=== PATIENT | female | born 1940 | race Caucasian/White ===

== ENCOUNTER 2020-03-08 09:43 | Outpatient (CLI) | payer MEDICARE, OTHER, SELFPAY ==
--- NOTE | ~2020-03-08 | CT_ITS ---
EXAMINATION: CT chest wo con EXAM DATE: 03/08/2020 10:29 INDICATION: Pulmonary nodules. TECHNIQUE: Spiral CT of the chest without contrast. Axial, coronal and sagittal images were reviewe d. Coronal maximum intensity pixel images of chest reviewed. The dose-length product (DLP) for this examination was 119.62 mGy-cm. The exposure was tailored according to patient size (auto mA exposur e control), and iterative reconstruction (ASIR) was used as additional dose reduction technique. Comp arison is made to prior examination from 01/03/2019, 12/21/2018, 01/14/2018. FINDINGS: In the anterior segment of the left upper lobe there is spiculated nodule measuring 1.3 x 1.8 cm (was 0.8 x 1.3 in 2018). This is connected by a bandlike opacity to another nodule in the same segment measuring measuring 1.3 x 1.6 cm (was 1.0 x 1.5 in 2018). Increase in size of other left magda g opacities which are less suspicious. There are no pleural or pericardial effusions. There is mild to moderate emphysema. Tracheobronchial tree is patent. There is no mediastinal, hilar or axillary lymphadenopathy. There is no pneumotho rax. Some hyperinflation with narrow cardiac silhouette. There is moderate to severe coronary carmelo rial calcification, arterial sclerosis. Bilateral adrenal gland low-density lesions unchanged likely benign. There is thoracic spondylosis without osteoblastic or osteolytic lesions identified. IMPRESSION: 1. Slow interval increase in size of scattered left lung nodular and reticular nodular opacities. Th zara could be postinfectious given slow interval growth and multiplicity. Consider ordering CT-guided percutaneous lung biopsy of largest left upper lobe nodule. 2. Mild to moderate emphysema and hyperinflation. 3. Extensive coronary artery calcifications. Consider follow-up nonemergent cardiology evaluation if not recently evaluated. 4. Benign adrenal lesions. Reviewed, dictated and finalized at location A. IMPRESSION: 1. Slow interval increase in size of scattered left lung nodular and reticular nodular opacities. These could be postinfectious given slow interval growth an d multiplicity. Consider ordering CT-guided percutaneous lung biopsy of largest left upper lobe nodule. 2. Mild to moderate emphysema and hyperinflation. 3. Extensive coronary artery calcifications. Consider follow-up nonemergent ca rdiology evaluation if not recently evaluated. 4. Benign adrenal lesions.
== END 2020-03-08 09:44 | disposition home or self-care (01) ==
LOC: ANHIMG 09:45
PROVIDERS: PCP Family Medicine; Visit Provider Family Medicine
DX: R91.1 Solitary pulmonary nodule (principal); J43.9 Emphysema, unspecified
CPT/HCPCS: 71250

== ENCOUNTER 2020-12-28 14:31 | Emergency (ER) | payer MEDICARE, OTHER, SELFPAY ==
--- NOTE | ~2020-12-28 | CT_ITS ---
EXAMINATION: CT chest abdomen pelvis w con EXAM DATE: 12/28/2020 15:50 INDICATION: Gastric, epigastric mass. Wound near center of chest, redness and swelling, marked. Epiga stric chest pain. TECHNIQUE: Spiral CT of the chest, abdomen and pelvis was performed following intravenous injection o f 100 mL Omnipaque 350. Axial, coronal and sagittal images were reviewed. Coronal maximum intensity pixel images of chest reviewed. The dose-length product (DLP) for this examination was 1092.63 mGy- cm. The exposure was tailored according to patient size (auto mA exposure control), and iterative re construction (ASIR) was used as additional dose reduction technique. Comparison is made to prior exam ination from 03/08/2020. FINDINGS: In the anterior subcutaneous tissues from the mid chest to the lower chest there is large a mount of subcutaneous gas within the fat. Appearance is suspicious for gas-forming bacteria, necrotiz ing fasciitis. No drainable fluid collection. Recommend clinical correlation, surgical consult. CHEST: Interval development of a left epicardial heterogeneously enhancing malignancy measuring 3.7 x 2.5 cm. Interval development of left internal mammary chain lymph node measuring about 1.2 cm in siz e. Previously seen 2 left upper lobe pulmonary nodules are reidentified, they appear closer to each o ther than on previous examination, but overall volume either stable or with continued minimal interva l growth. Left lower lobe nodule has increased, difficult to measure given shape but today measuring about 2.4 x 1.8 cm versus 1.7 x 1.1 cm. There is left periaortic soft tissue measuring about 6 mm in thickness extending along the mid abdominal aorta, probably malignancy. There is mild emphysema. The re is small left-sided pleural effusion. Scattered small regions of endobronchial debris. There is no mediastinal, hilar or axillary lymphadenopathy. There is no pneumothorax. Heart normal in size . There is moderate coronary arterial calcification, arterial sclerosis. No central pulmonary embol i. ABDOMEN PELVIS: There is a right adrenal gland lesion was low density on noncontrast study consiste nt with adenoma measuring 2.4 cm. There is moderate left renal atrophy, with regions of scarring. Ga llbladder not identified, patient likely has had cholecystectomy. Portal and splenic veins are paten t. Kidneys enhance symmetrically. There is no hydronephrosis. The uterus is unremarkable. The b ladder is unremarkable. There is no retroperitoneal or pelvic lymphadenopathy. There is aortoiliac ectasia with scattered arteriosclerotic disease. Again there is a large fat-containing left mid abdo michelle wall hernia, herniated portion measuring 4 x 10 cm axial dimensions with a abdominal wall defec t measuring 4 cm. The appendix is not positively visualized. There is no pericecal inflammatory change to suggest appe ndicitis. The stomach and small bowel are unremarkable. There is expected amount of colonic stool. No free intraperitoneal gas. There are no osteoblastic or osteolytic lesions identified. Left hi p gamma nail. IMPRESSION: 1. Midline mid to lower thoracic subcutaneous gas pocket most likely necrotizing fasciitis. Recommen d surgical consult. 2. 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 3. Known left lung nodules with definite increase in a right lower lobe nodule size, and developing left periaortic malignancy and internal mammary lymphadenopathy. 4. Development of small left pleural effusion. 5. Chronic findings above. I discussed suspected necrotizing fasciitis with Dr. Laci Patino MD at 14:09 on 12/28/2020 . I also discussed the epicardial malignancy with him at 16:13. Reviewed, dictated and finalized at location A.
[2020-12-28 14:38] VITALS: BP 120/71; PULSE 101; RESP 20; TEMP 37.7; O2SAT 99
--- NOTE | 2020-12-28 14:46 | ED.WOUNDLAC ---
HPI - Wound/Laceration General Chief Complaint: Wound/Laceration Stated Complaint: weakness Time Seen by Provider: 12/28/20 14:33 History of Present Illness HPI narrative: Flu-like symptoms for about 1 week including nausea, fatigue, chills, and hot flashes. This has been associated with the development of a large painful red ans swollen area to the lower chest and epigastric region. She reports chronic SOB, no worse than usual. Related Data Allergies Allergy/AdvReac Type Severity Reaction Status Date / Time No Known Allergies Allergy Verified 11/18/15 15:02 Review of Systems Review of Systems: All systems reviewed & are unremarkable except as noted in HPI and below Constitutional: Constitutional: Reports chills and Reports fatigue Eyes: Eyes: Reports no additional eye complaints Cardiovascular: Cardiovascular: Reports chest pain Respiratory: Respiratory: Reports cough and Reports dyspnea Gastrointestinal: Gastrointestinal: Reports nausea Genitourinary: Genitourinary: Reports no additional female genitourinary complaints Neurologic: Reports weakness PMFSH Past Medical History Medical History (Updated 12/28/20 @ 18:27 by Lcai Patino MD) COPD (chronic obstructive pulmonary disease) Diabetes mellitus, type II Family History Family History (Updated 12/17/15 @ 16:12 by DOCTOR UNKNOWN) Other Diabetes mellitus Family history of heart disease in male family member before age 55 Social History Social History Smoking status: Current every day smoker Exam Const: General: no acute distress, alert and ill appearing Orientation/consciousness: patient oriented x3 HENMT: Head: normal to inspection Neck: Neck: normal visual inspection and no lymphadenopathy Chest: Chest palpation & inspection: tenderness sternum and xiphoid process Other: erythematous and indurated area with central bullae containing serous fluid over sternum and epigastrium Resp: Effort & Inspection: normal respiratory effort Auscultation: rhonchi Cardio: Jugular venous distension: no JVD Rate: regular rate Rhythm: regular rhythm Heart sounds: no murmurs GI: Inspection: non-distended GI Palp: Yes Soft to palpation and No Tenderness to palpation present (GI) Skin: Wounds: no wounds Neuro: General: patient oriented x3, moves all extremities, no focal motor deficits and CN's II-XI intact bilaterally Speech: normal speech Extrem: General: no edema Psych: Appearance: well kempt Affect: normal affect Course Vital Signs Vital signs: Vital Signs Temperature 37.7 C H 12/28/20 14:38 Pulse Rate 101 H 12/28/20 14:38 Respiratory Rate 20 12/28/20 14:38 Blood Pressure 120/71 12/28/20 14:38 Pulse Oximetry 99 12/28/20 14:38 Temperature 37.7 C H 12/28/20 14:38 Pulse Rate 100 12/28/20 18:00 Respiratory Rate 12 12/28/20 18:00 Blood Pressure 117/93 H 12/28/20 18:00 Pulse Oximetry 99 12/28/20 18:00 MDM - Wound/Laceration MDM Narrative Medical decision making narrative: CT concerning for necrotizing fasciitis and new lung malignancy. I spoke with Dr. Church. He recommends transfer to a higher level of care. [facility] declined transfer due to capacity [facility] accepted transfer to the ED. Differential Diagnosis Differential diagnosis: Likely abscess Medical Records Attestation: I reviewed the patient's medical records. Lab Data Attestation: I reviewed the patient's lab results. Result diagrams: 12/28/20 14:49 12/28/20 14:49 Labs: Lab Results 12/28/20 12/28/20 12/28/20 Range/Units 14:49 14:49 14:49 WBC 18.2 H (4.5-10.0) K/mm3 RBC 5.08 (4.2-5.4) M/mm3 Hgb 15.7 H (12.0-15.0) g/dL Hct 45.7 (37.0-47.0) % MCV 90.0 (80-100) fl MCH 30.9 (26-34) pg MCHC 34.4 (32-36) g/dl RDW 13.5 (11.5-14.5) % Plt Count 217 (150-375) k/mm3 MPV 8.8 (7.4-10.4) fl Immature Gran % (Auto) 2.6 H (0-0.5) % Neut % (Auto) 79.7
[2020-12-28 15:07] LABS: Basophils Absolute Auto 0.1 K/mm3 (0.0-0.1); Basophils Percent Auto 0.5 % (0.2-1.2); Eosinophils Absolute Auto 0.3 K/mm3 (0-0.3); Eosinophils Percent Auto 1.7 % (0-4.4); Hematocrit 45.7 % (37.0-47.0); Hemoglobin 15.7 g/dL (12.0-15.0); Immature Granulocyte Absolute 0.48 K/mm3 (0.00-0.031); Immature Granulocyte Percent A 2.6 % (0-0.5); Lymphocytes Absolute Auto 1.13 K/mm3 (0.9-3.2); Lymphocytes Percent Auto 6.2 % (18.3-44.2); Mean Corpuscular HGB Conc 34.4 g/dl (32-36); Mean Corpuscular Hemoglobin 30.9 pg (26-34); Mean Platelet Volume 8.8 fl (7.4-10.4); Monocytes Absolute Auto 1.7 K/mm3 (0.1-0.6); Monocytes Percent Auto 9.3 % (2.6-8.5); Neutrophils Absolute Auto 14.5 K/mm3 (1.3-6.7); Neutrophils Percent Auto 79.7 % (45.5-73.1); Platelet Count Result 217 k/mm3 (150-375); Red Blood Count 5.08 M/mm3 (4.2-5.4); Red Cell Distribution Width 13.5 % (11.5-14.5); White Blood Count 18.2 K/mm3 (4.5-10.0)
[2020-12-28 15:13] LABS: Lactic Acid Reflex 1.8 mmol/L (0.7-2.1); Prothrombin Time 13.8 Seconds (11.1-14.7)
[2020-12-28 15:14] LABS: Partial Thromboplastin Time 27.9 SECONDS (22.3-36.8)
[2020-12-28 15:15] VITALS: BP 113/66; PULSE 99; RESP 14; O2SAT 99
[2020-12-28 15:18] LABS: Alanine Aminotransferase 42 U/L (4-35); Albumin Level 3.4 g/dL (3.5-5.1); Alkaline Phosphatase 123 U/L (38-126); Anion Gap 9 mmol/L (8-16); Aspartate Amino Transferase 50 U/L (14-36); Blood Urea Nitrogen 36 mg/dL (7-17); Calcium 9.3 mg/dL (8.4-10.2); Carbon Dioxide 26 mmol/L (22-30); Chloride 101 mmol/L (98-107); Estimated CRCL calculation 36 ml/min; Estimated Glomerular Filt Rate 53; Glucose 140 mg/dL (65-105); Sodium 136 mmol/L (137-145)
[2020-12-28 15:24] LABS: Add Urine Microscopic? YES; Appearance Urine Cloudy (Clear); Bacteria Urine Trace /hpf; Bilirubin Urine 1+ (Negative); Blood Urine Negative (Negative); Budding Yeast Urine Present /hpf; Color Urine Amber (Yellow); Glucose Urine UA Negative (Negative); Ketones Urine Negative (Negative); Leukocyte Esterase Ur Negative LEU/UL (Negative); Mucus Urine Few /lpf; Nitrate Urine Negative (Negative); Protein Urine 2+ mg/dL (Negative); RBC Urine 51-75 /hpf (0-2); Specific Grav Ur 1.024 (1.001-1.035); Squamous Epithelial Cell Urine Moderate /hpf (Few)
[2020-12-28 16:15] VITALS: BP 137/65; PULSE 99; RESP 12; O2SAT 99
[2020-12-28 17:15] VITALS: BP 106/63; PULSE 101; RESP 12; O2SAT 99
--- NOTE | 2020-12-28 17:57 | PC.NURSE ---
CALLED [facility] TO TRANSPORT PATIENT TO [facility] ED. (L&S PER EDP). ETA 15 MINUTES. #[id number]
[2020-12-28 18:00] VITALS: BP 117/93; PULSE 100; RESP 12; O2SAT 99
== END 2020-12-28 18:30 | disposition short-term general hospital (02) ==
PROVIDERS: Emergency Provider Emergency Medicine; PCP Family Medicine
DX: M72.6 Necrotizing fasciitis (principal); R91.8 Other nonspecific abnormal finding of lung field; J44.9 Chronic obstructive pulmonary disease, unspecified; E11.9 Type 2 diabetes mellitus without complications; F17.200 Nicotine dependence, unspecified, uncomplicated; R19.06 Epigastric swelling, mass or lump
CPT/HCPCS: 36415; 51701; 71260; 74177; 80053; 81001; 83605; 85025; 85610; 85730; 87040; 96365; 96368; 99285; J2543; J3370; Q9967

== ENCOUNTER → 2021-06-30 13:40 | Outpatient (CLI) | payer MEDICARE, OTHER, SELFPAY ==
--- NOTE | ~2021-06-30 | XR_ITS ---
XR chest 2V DATE: 06/30/2021 14:20 INDICATION: Bronchitis TECHNIQUE: 2 standing views, PA and lateral projections COMPARISON: 12/28/2020 CT chest abdomen pelvis 4. two-view chest FINDINGS: There is patchy left basilar infiltrate and/atelectasis, mild blunting of left costophrenic angle suggesting mild left pleural effusion. The lungs otherwise appear hyperinflated and clear. Cardiomegaly. Aortic calcification. Diffuse osteopenia. Degenerative spurring of the thoracic and lumbar spine. IMPRESSION: Left basilar infiltrate and/atelectasis, mild left pleural effusion Cardiomegaly Aortic atherosclerosis Osteopenia Degenerative change of thoracic and lumbar spine Reviewed, dictated and finalized at location B.
== END ==
PROVIDERS: PCP Physician Assistant; Visit Provider Physician Assistant
DX: J40 Bronchitis, not specified as acute or chronic (principal); J98.11 Atelectasis; J90 Pleural effusion, not elsewhere classified; I51.7 Cardiomegaly; M85.89 Other specified disorders of bone density and structure, multiple sites
CPT/HCPCS: 71046

== ENCOUNTER 2021-07-08 15:01 | Inpatient (IN) | payer MEDICARE, OTHER, SELFPAY ==
[2021-07-08] VITALS (10 sets, daily range): BP systolic 104–145; BP diastolic 59–90; PULSE 78–117; RESP 16–22; TEMP 36.5–37.1; O2SAT 92–98; BMI 30.5
--- NOTE | ~2021-07-08 | CT_ITS ---
EXAMINATION: CT abdomen pelvis w con DATE: 07/09/2021 13:29 INDICATION: Lung cancer staging. TECHNIQUE: Computed tomography (CT) of the abdomen and pelvis was performed with 100 mL Omnipaque 350 intravenous contrast. Automated exposure control and iterative reconstruction technique were employe d. The dose-length product was 725.04 mGy-cm. COMPARISON: CT abdomen and pelvis 12/28/2020, chest CT 01/14/2018, 12/21/2018, 12/28/2020 FINDINGS: The visualized portions of the lung bases demonstrate trace right and small left pleural ef fusions. There is nodular pleural thickening in left hemithorax, worst at the inferior pulmonary liga ment. Partially visualized is a 8.2 x 5.6 cm mass in the anterior mediastinum that abuts the left katie ed pleura and abuts the right ventricle of the heart with mass effect on right ventricle of the heart . The heart size is normal. No pericardial effusion. There are coronary artery calcifications. There is a 2.6 cm cyst in the liver. There are changes of cholecystectomy. The spleen, pancreas, are normal . There is a 2.2 cm mass in right adrenal gland that measured low-attenuation on the prior noncontras t CT, consistent with an adenoma. There are changes of partial left nephrectomy versus ablation. Ther e are cysts in the kidneys measuring up to 3.2 cm the left. There is atrophy of left adrenal gland. T here are no dilated loops of bowel. The appendix is not visualized. There is nodular wall thickening of small bowel loops in left abdomen. There are mildly enlarged mesenteric lymph nodes on the left me asuring up to 2.1 x 1.4 cm. There is trace pelvic ascites. There is an incisional hernia in left uppe r quadrant containing fat. There is internal fixation of proximal left femur. There is moderate lumba r spondylosis. There is a lytic lesion involving T8 spinous process. IMPRESSION: 1. Pleural-based left lung masses and anterior mediastinal mass and T8 spinous process mass, consiste nt with metastatic disease. Possible primary malignancies include renal cell carcinoma and bronchogen ic carcinoma. 2. Nodular wall thickening of noncontiguous small bowel loops in left abdomen and left-sided mesenter ic lymphadenopathy, consistent with metastatic disease. Possible primary malignancies include renal c ell carcinoma, lymphoma, and bronchogenic carcinoma. 3. Trace right and small left pleural effusions. 4. Insertional hernia in anterior left abdomen containing fat. Reviewed, dictated and finalized at location A. IMPRESSION: 1. Pleural-based left lung masses and anterior mediastinal mass and T8 spinous process mass, consistent with metastatic disease. Possible primary malignancies include renal cell carcinoma and bronchogenic carcinoma. 2. Nodular wall thickening of noncontiguous small bowel loops in left abdomen a nd left-sided mesenteric lymphadenopathy, consistent with metastatic disease. P ossible primary malignancies include renal cell carcinoma, lymphoma, and bronch ogenic carcinoma. 3. Trace right and small left pleural effusions. 4. Insertional hernia in anterior left abdomen containing fat.
--- NOTE | ~2021-07-08 | MR_ITS ---
EXAMINATION: MR brain/brain stem wo/w con EXAM DATE: 07/10/2021 12:18 INDICATION: confusion, cancer. TECHNIQUE: Magnetic resonance imaging (MRI) of the brain/brain stem obtained without contrast. Sagit maninder T1, axial diffusion, gradient echo (T2*), T1, T2, FLAIR sequences obtained. Patient was then inj ected with 14 cc intravenous Multihance contrast. Axial and coronal postcontrast T1 weighted sequence s obtained. There is no prior study for comparison. FINDINGS: There are no areas of restricted diffusion to suggest acute infarction. There is no acute hemorrhage seen on the T2*, a hemosiderin sensitive sequence. No intraparenchymal brain mass lesion. There is moderate periventricular and subcortical T2/FLAIR signal hyperintensity, nonspecific but pr obably related to small vessel ischemic disease (microangiopathy). There is moderate prominence of the sulci and ventricles related to cerebral atrophy. There are no extra-axial collections. Flow v oids are seen in the cerebral arteries on the T2-weighted sequences consistent with their expected pa tency. The orbits are unremarkable. Soft tissue is unremarkable. There are no areas of abnormal en hancement on the postcontrast images. IMPRESSION: 1. No acute intracranial findings. 2. Chronic age related findings. Reviewed, dictated and finalized at location G.
--- NOTE | ~2021-07-08 | US_ITS ---
EXAMINATION: US thoracentesis DATE: 07/09/2021 12:37 INDICATION: pleural effusion TECHNIQUE: The procedure and its risks, benefits, and alternatives were discussed with the patient. P otential risks discussed included bleeding, infection, and pneumothorax. The patient understood the r isks and agreed to proceed. The skin was prepped and draped in sterile fashion. 1% lidocaine was used for local anesthesia. Under ultrasound guidance, a 5 Fr catheter with trochar was advanced into the left pleural effusion. Fluid was aspirated. The catheter was removed, and a dressing was applied. The re were no immediate complications. FINDINGS: Ultrasound images demonstrate a left pleural effusion and the catheter within the fluid. IMPRESSION: 1. Successful ultrasound-guided thoracentesis yielding 725 mL of clear, yellow fluid. Reviewed, dictated and finalized at location A.
--- NOTE | ~2021-07-08 | XR_ITS ---
EXAMINATION: XR chest 2V DATE: 07/10/2021 08:11 INDICATION: Pneumonia. TECHNIQUE: Frontal and lateral views of the chest were obtained. COMPARISON: Chest single view 07/09/2021 FINDINGS: There are airspace opacities in left mid and lower lung zones. There is a mass in the anter ior mediastinum. There are small left and trace right pleural effusions. No pneumothorax. The heart s ize is normal. IMPRESSION: 1. Stable airspace opacities in left mid and lower lung zones, likely predominantly metastatic diseas e and atelectasis. 2. Anterior mediastinal mass, consistent metastatic disease. 3. Stable small left and trace right pleural effusions. Reviewed, dictated and finalized at location A. IMPRESSION: 1. Stable airspace opacities in left mid and lower lung zones, likely predomina ntly metastatic disease and atelectasis. 2. Anterior mediastinal mass, consistent metastatic disease. 3. Stable small left and trace right pleural effusions.
--- NOTE | ~2021-07-08 | XR_ITS ---
EXAMINATION: XR chest 2V EXAM DATE: 07/08/2021 15:42 INDICATION: Cough and chest pain. TECHNIQUE: Frontal and lateral projections of the chest obtained and reviewed. Comparison is made to prior examination from 06/30/2021. Correlation was made with CT 12/28/2020. FINDINGS: Small left pleural effusion and adjacent airspace disease unchanged compared to recent [facility] x-ray, likely malignancy and malignant pleural effusion correlating with a prior CT scan from [facility]. Pneumonia not excludable. Right lung is clear. Cardiomediastinal silhouette is normal. There is no pneumothorax suspected. There is aortic arteriosclerosis. There are bony degenerative changes. IMPRESSION: Left lower lobe airspace disease likely malignancy, small malignant pleural effusion. Pne umonia not excludable. Reviewed, dictated and finalized at location A. IMPRESSION: Left lower lobe airspace disease likely malignancy, small malignant pleural effusion. Pneumonia not excludable.
--- NOTE | ~2021-07-08 | XR_ITS ---
EXAMINATION: [id number] DATE: 07/09/2021 12:34 INDICATION: Left pleural effusion status post thoracentesis. TECHNIQUE: A single frontal view of the chest was obtained. COMPARISON: Chest 2 views 07/08/2021, chest CT 07/08/2021 FINDINGS: There are airspace opacities in left mid and lower lung zones. There is a small left pleura l effusion. No pneumothorax. The heart size is normal. IMPRESSION: 1. Airspace opacities in left mid and lower lung zones, likely a combination of malignancy and mild a telectasis. 2. Small left pleural effusion with improvement status post thoracentesis. Reviewed, dictated and finalized at location A. IMPRESSION: 1. Airspace opacities in left mid and lower lung zones, likely a combination of malignancy and mild atelectasis. 2. Small left pleural effusion with improvement status post thoracentesis.
--- NOTE | ~2021-07-08 | CT_ITS ---
EXAMINATION: CTA chest PE protocol EXAM DATE: 07/08/2021 18:27 INDICATION: Shortness of breath. TECHNIQUE: Spiral CTA of the chest (pulmonary arteries) was performed with 100 cc Omnipaque 350 intr avenous contrast injection. Images were acquired during the pulmonary arterial phase. Coronal maxi mum intensity projection 3D-reconstructions were created by the technologist on dedicated workstation . Axial, coronal and sagittal reformatted images were reviewed. The dose-length product (DLP) for t his examination was 399.09 mGy-cm. The exposure was tailored according to patient size (auto mA exp osure control), and iterative reconstruction (ASIR) was used as additional dose reduction technique. Comparison is made to prior examination from 12/28/2020. FINDINGS: There are no pulmonary emboli in the 1st through 3rd order (central and interlobar) pulmon charli arteries. Some loss of attenuation in the right basilar segmental pulmonary from respiratory mot ion, these regions not confidently evaluated. No Intraluminal filling defects identified. No thorac ic aortic dissection. There is significant interval increase in size of left epicardial mass which has clearly invaded the pericardium and chest wall, measures about 8 x 6 cm, and is narrowing the main pulmonary artery outfl ow tract to about 3.0 x 0.6 cm probably from both mass effect and invasion. The left anterior descend ing coronary artery extends through this mass. This is contiguous with malignancy in the medial aspec t of the left upper lobe. Left lower lobe mass has increased in size, now measuring 3.2 x 2.5 cm. Pathologically enlarged media stinal, prevascular lymph nodes. There is new right lower lobe 7 mm nodule. Right adrenal 2 cm mass, indeterminate. There is moderate left pleural effusion. Mild emphysema. There is approximately 2 cm osteolytic lesion in the C7 vertebral body, metastatic disease or multipl e myeloma. Another osteolytic lesion replacing the T8 spinous process. These are new compared to prio r study. IMPRESSION: 1. No pulmonary emboli suspected. 2. Progression of malignancy including left epicardial 8 cm mass invading the pericardium and probab ly the pulmonary artery severely narrowing its outflow tract lumen. 3. Progression of lung nodules, mediastinal lymphadenopathy. 4. Development of osteolytic disease. 5. Moderate left pleural effusion. Reviewed, dictated and finalized at location A. IMPRESSION: 1. No pulmonary emboli suspected. 2. Progression of malignancy including left epicardial 8 cm mass invading the pericardium and probably the pulmonary artery severely narrowing its outflow tr act lumen. 3. Progression of lung nodules, mediastinal lymphadenopathy. 4. Development of osteolytic disease. 5. Moderate left pleural effusion.
--- NOTE | ~2021-07-08 | US_ITS ---
EXAMINATION: US biopsy st neck thorax DATE: 07/11/2021 15:21 INDICATION: T8 spinous process mass. TECHNIQUE: The procedure including the risks, benefits, and alternatives was discussed with the patie nt. Risks discussed included bleeding and infection. The patient understood the risks and agreed to p roceed. The skin overlying the T8 spinous process was prepped and draped in usual sterile fashion. A nesthetic was administered with 1% lidocaine subcutaneously. An 18 gauge core biopsy needle was then used to obtain 3 core biopsy specimens under continuous sonographic guidance. The entry site was kelly aned and dressed. There were no immediate complications. FINDINGS: Ultrasound images demonstrate the needle in a hypoechoic mass in T8 spinous process. IMPRESSION: 1. Ultrasound-guided core needle biopsy of a mass in T8 spinous process. Reviewed, dictated and finalized at location A.
--- NOTE | 2021-07-08 16:45 | ED.GENADULT ---
HPI - General Adult General Chief complaint: Unspecified Stated complaint: PNEUMONIA Time Seen by Provider: 07/08/21 16:19 Source: patient Mode of arrival: EMS Limitations: no limitations History of Present Illness HPI narrative: 81-year-old female states she was diagnosed with pneumonia 2 weeks ago she is finished antibiotics and steroids still with no relief. She is having shortness of breath, intermittent fevers left lower chest pain radiating to the back and dyspnea on exertion. On arrival patient is speaking full sentences without difficulty. Patient is afebrile. States Covid vaccination up-to-date. No vomiting, no abdominal pain, no dysuria, no hematuria. Complains of overall weakness. Shortness of breath worse with exertion improved with rest. Cough worse at night. No increased leg swelling, no hemoptysis taking all medications. Related Data Home Medications Medication Instructions Recorded Confirmed Linzess 145 mcg PO QMWF 07/08/21 07/08/21 Ozempic 0.5 mg SUBCUT WEEKLY 07/08/21 07/08/21 levothyroxine [Synthroid] 75 mcg PO DAILY 07/08/21 07/08/21 lisinopril 10 mg PO DAILY 07/08/21 07/08/21 simvastatin 20 mg PO QAM 07/08/21 07/08/21 solifenacin 10 mg PO DAILY 07/08/21 07/08/21 Allergies Allergy/AdvReac Type Severity Reaction Status Date / Time No Known Allergies Allergy Verified 07/08/21 21:16 Review of Systems Review of Systems: CONSTITUTIONAL: subjective fever, no weight loss, no confusion EYES: no vision changes, no eye pain ENT: no rhinorrhea, no sore throat, no difficulty swallowing CARDIOVASCULAR: left pleuritic chest pain, no leg edema, no palpitations RESPIRATORY: positive for cough and shortness of breath, no hemoptysis GASTROINTESTINAL: no abdominal pain, no nausea, no vomiting, no diarrhea GENITOURINARY: no flank pain, no dysuria, no hematuria SKIN: no rash, no jaundice MUSCULOSKELETAL: positive for back pain, no trauma. NEUROLOGIC: No headache, no dizziness, no focal weakness PSYCHIATRIC: No hallucinations, no suicidal ideation [facility] Past Medical History Medical History (Updated 07/16/21 @ 14:00 by Ryann Coyne MD) COPD (chronic obstructive pulmonary disease) Diabetes mellitus, type II Family History Family History (Updated 07/08/21 @ 21:29 by Brianna Roberto RN) Sibling Diabetes mellitus Father Family history of heart disease in male family member before age 55 Acute myocardial infarction Cerebrovascular accident Mother No problems noted. Sibling Asthma Social History Social History Smoking packs per day: 1 Smoking cigarettes per day: 20.0 Years smoked: 64 Smoking pack-years: 64.00 Smoking status: Current every day smoker Tobacco type: cigarettes Alcohol intake: never Substance use: never Spiritual care concerns: No Exam Narrative: General: alert, afebrile, answering all questions appropriately Head: normocephalic, atraumatic Eyes: EOMI bilaterally, anicteric, no injection ENT: moist mucous membranes, oropharynx patent, no rhinorrhea Neck: supple, trachea midline, no JVD Chest: equal chest rise bilaterally, no chest wall trauma noted Lungs: Decreased breath sounds left base, respirations mildly labored no tachypnea CV: regular rate, no GREGORIO B, calf size equal bilaterally Abd: soft, non-distended, non-tender, no rebound, no gaurding : no CVA tenderness B, bladder non-distended EXT: no deformity noted, moving all extremities equally Skin: warm, dry, no pallor Neuro: alert, oriented x 3; CN 2-12 grossly intact, no dysarthria Psych: affect appropriate, though content normal Course Course Emergency Course: Patient with large lung mass and epicardial mass increased over the last 6 months. Plan is to admit her for further work-up and possible thoracocentesis for left pleural effusion. Spoke with both oncology and the admitting hospitalist. Patient understands that she will be adm
[2021-07-08 17:38] LABS: Basophils Absolute Auto 0.1 K/mm3 (0.0-0.1); Basophils Percent Auto 0.5 % (0.2-1.2); Eosinophils Absolute Auto 3.8 K/mm3 (0-0.3); Eosinophils Percent Auto 19.7 % (0-4.4); Hemoglobin 14.2 g/dL (12.0-15.0); Immature Granulocyte Absolute 0.59 K/mm3 (0.00-0.031); Lymphocytes Absolute Auto 2.05 K/mm3 (0.9-3.2); Lymphocytes Percent Auto 10.6 % (18.3-44.2); Mean Corpuscular HGB Conc 32.3 g/dl (32-36); Mean Corpuscular Hemoglobin 27.5 pg (26-34); Mean Corpuscular Volume 85.1 fl (80-100); Mean Platelet Volume 9.2 fl (7.4-10.4); Monocytes Absolute Auto 1.4 K/mm3 (0.1-0.6); Monocytes Percent Auto 7.3 % (2.6-8.5); Neutrophils Absolute Auto 11.4 K/mm3 (1.3-6.7); Neutrophils Percent Auto 58.9 % (45.5-73.1); Platelet Count Result 163 k/mm3 (150-375); Red Blood Count 5.17 M/mm3 (4.2-5.4); Red Cell Distribution Width 17.8 % (11.5-14.5); White Blood Count 19.4 K/mm3 (4.5-10.0)
[2021-07-08 17:48] LABS: Alanine Aminotransferase 58 U/L (4-35); Albumin Level 3.1 g/dL (3.5-5.1); Alkaline Phosphatase 149 U/L (38-126); Anion Gap 3 mmol/L (8-16); Aspartate Amino Transferase 39 U/L (14-36); Bilirubin,Total 0.3 mg/dL (0.2-1.3); Blood Urea Nitrogen 30 mg/dL (7-17); Calcium 8.9 mg/dL (8.4-10.2); Carbon Dioxide 33 mmol/L (22-30); Chloride 98 mmol/L (98-107); Estimated CRCL calculation 35 ml/min; Estimated Glomerular Filt Rate 53; Glucose 159 mg/dL (65-110); Lipase 40 U/L (23-300); Magnesium 2.1 mg/dL (1.6-2.3); Partial Thromboplastin Time 26.1 SECONDS (22.3-36.8); Potassium 4.5 mmol/L (3.4-5.0); Prothrombin Time 12.6 Seconds (11.1-14.7); Sodium 134 mmol/L (137-145)
[2021-07-08] MEDS: SODIUM CHLORIDE 0.9% IV 1,000 ML 999 ML IV CONT (18:28)
[2021-07-08 19:37] LABS: Add Urine Microscopic? YES; Appearance Urine Clear (Clear); Bacteria Urine Trace /hpf; Bilirubin Urine Negative (Negative); Blood Urine 1+ (Negative); Budding Yeast Urine Present /hpf; Color Urine Yellow (Yellow); Glucose Urine UA Negative (Negative); Ketones Urine Negative (Negative); Leukocyte Esterase Ur Negative LEU/UL (Negative); Mucus Urine Rare /lpf; Nitrate Urine Negative (Negative); Protein Urine Negative (Negative); RBC Urine 21-50 /hpf (0-2); Squamous Epithelial Cell Urine Rare /hpf (Few)
--- NOTE | 2021-07-08 20:57 | PC.NURSE ---
This patient, Machelle Swain, was admitted to IMU Room 203-01 on 07/08/21 at 2055. Patient/family oriented to hospital policies and general routines including ID bracelet, bed and alarms, visiting hours, pain management, procedures, bathroom and other care routines, personal items, smoking policy, room service/diet, and visiting hours. Information on how to activate the Rapid Response Team has been discussed. Patient/Family are encouraged to report perceived risks to care and to ask questions if they do not understand what they are told or what they should do.
--- NOTE | 2021-07-08 22:24 | PM.IMHP ---
H&P: HPI History of Present Illness Date/Time: 07/08/21 22:24 Chief Complaint: Shortness of breath Narrative: 81-year-old female who presents to the ER with coarsening weakness and persistent symptoms of pneumonia with cough and shortness of breath. She states she started feeling short of breath and having cough and low-grade temperature about 2 weeks ago for which and chest x-ray was done and she was prescribed antibiotic and steroid however she has not felt any better even with the treatment and hence came to the ER for evaluation. She states that she has continued to feel weak. And also reports worsening shortness of breath with ambulation. She denies any increased leg swelling. No chest pain. Cough is very mild with minimal expectoration. She is up-to-date on her COVID vaccination. She was admitted in December 2020 with necrotizing fascitis of her chest wall for which he was transferred to [facility] where she had a debridement done. She was transferred to rehab facility where she stayed for a week and had been released to home after that. The wound has completely recovered by now. She has noted lung mass at the time which is increased in size in the scan today. The CT scan was negative for PE. She states she has smoked all her life approximately 1 pack per day for past 62 years. She wants to further evaluate this lung mass to know what this is. Review of Systems Review of Systems: - CONSTITUTIONAL: Reports weight loss, denies fever and chills. - HEENT: Denies changes in vision and hearing - RESPIRATORY: Reports SOB and cough. - CV: Denies palpitations and CP. - GI: Denies abdominal pain, nausea, vomiting and diarrhea. - : Denies dysuria and urinary frequency. - MSK: Denies myalgia and joint pain. - SKIN: Denies rash and pruritus. - NEUROLOGICAL: Denies headache and syncope. - PSYCHIATRIC: Denies recent changes in mood. Denies anxiety and depression. All systems reviewed & are unremarkable except as noted in HPI and below Constitutional: Constitutional: Reports fatigue and Reports weakness Neurologic: Reports weakness Endocrine: Endocrine: Reports fatigue [facility] Past Medical History Medical History (Updated 07/08/21 @ 22:29 by Fred aCruso MD) COPD (chronic obstructive pulmonary disease) Diabetes mellitus, type II Family History Family History (Updated 07/08/21 @ 21:29 by Brianna Roberto RN) Sibling Diabetes mellitus Father Family history of heart disease in male family member before age 55 Acute myocardial infarction Cerebrovascular accident Mother No problems noted. Sibling Asthma Social History Social History Smoking packs per day: 1 Smoking cigarettes per day: 20.0 Years smoked: 64 Smoking pack-years: 64.00 Smoking status: Current every day smoker Tobacco type: cigarettes Alcohol intake: never Substance use: never Spiritual care concerns: No Meds Home Medications and Allergies Home Medications Medication Instructions Recorded Confirmed Type levothyroxine [Synthroid] 75 mcg PO DAILY 07/08/21 07/08/21 History linaclotide [Linzess] 145 mcg PO QMWF 07/08/21 07/08/21 History lisinopril 10 mg PO DAILY 07/08/21 07/08/21 History semaglutide [Ozempic] 0.5 mg SUBCUT WEEKLY 07/08/21 07/08/21 History simvastatin 20 mg PO QAM 07/08/21 07/08/21 History solifenacin 10 mg PO DAILY 07/08/21 07/08/21 History Allergies Allergy/AdvReac Type Severity Reaction Status Date / Time No Known Allergies Allergy Verified 07/08/21 21:16 Vital Signs Vital Signs - 24 hr 07/08/21 15:04 07/08/21 15:15 07/08/21 17:23 Temperature 98.7 F Pulse Rate 117 H 115 H 115 H Respiratory Rate 22 H 16 Blood Pressure 115/66 141/90 H Pulse Oximetry 97 98 07/08/21 18:27 07/08/21 19:19 07/08/21 20:36 Temperature Pulse Rate 85 95 104 H Respiratory Rate 19 18 18 Blood Pressure 112/80 145/59 H 113
[2021-07-09] VITALS (18 sets, daily range): BP systolic 102–152; BP diastolic 54–83; PULSE 73–109; RESP 14–24; TEMP 36.1–36.9; O2SAT 94–99; BMI 30.5
--- NOTE | 2021-07-09 | ECHO_ITS ---
Patient Info Name: Machelle Swain Age: 81 years : 1940 Gender: Female Ht: 61 in Wt: 161 lbs BSA: 1.80 m2 HR: 86 bpm BP: 128 / 67 mmHg Heart Rhythm: Sinus Rhythm Exam Date: 07/09/2021 2:48 PM Exam Location: [facility] Patient Status: Inpatient Admit Date: 07/08/2021 Staff Ordering Physician: Fred Caruso MD Orange Picker Machine Operator: Mark Alexander, DAVID, RT Attending Provider: Fred Caruso MD Exam Type: CA echo dop color flow w con Study Info Indications R06.00 - Dyspnea, unspecified Complete two-dimensional, color flow and Doppler transthoracic echocardiogram is performed. Summary 1. Complete two-dimensional, color flow and Doppler transthoracic echocardiogram is performed. 2. Left ventricular chamber dimension is normal. 3. Left ventricular systolic function is hyperdynamic, estimated at >70%. 4. There is mildly increased left ventricular wall thickness. 5. The left ventricular diastolic function is grade I diastolic dysfunction. 6. Right ventricular chamber dimension is decreased due to external compression of the RV free wall.. 7. Left atrial chamber dimension is mildly enlarged. 8. There is mild aortic valve stenosis with a peak velocity of 194.33 cm/s, mean gradient of 9 mmHg, and aortic valve area of 1.83 cm2. 9. There is moderate aortic valve calcification. 10. There is mild mitral valve regurgitation. 11. There is mild tricuspid valve regurgitation. 12. Mild pulmonary hypertension, estimated pulmonary arterial systolic pressure is 38 mmHg. 13. There is a large extracardiac mass that is anterior to the RV free wall causing significant compression on the right ventricle. It measures at least 6.6 x 5.7 cm by echo and is consistent with extracardiac mass seen on CT scan. Left Ventricle Left ventricular chamber dimension is normal. Left ventricular systolic function is hyperdynamic, estimated at >70%. There is mildly increased left ventricular wall thickness. The left ventricular diastolic function is grade I diastolic dysfunction. Right Ventricle Right ventricular chamber dimension is decreased due to external compression of the RV free wall.. Right ventricular systolic function is normal. Left Atria Left atrial chamber dimension is mildly enlarged. Right Atria Right atrial chamber dimension is normal. Atrial Septum Intact interatrial septum visualized by color flow imaging. Aortic Valve The aortic valve is trileaflet. There is mild aortic valve stenosis with a peak velocity of 194.33 cm/s, mean gradient of 9 mmHg, and aortic valve area of 1.83 cm2. There is trace aortic valve regurgitation. There is moderate aortic valve calcification. Pulmonic Valve The pulmonic valve is normal. There is no pulmonic valve stenosis. There is trace pulmonic regurgitation. Mitral Valve The mitral valve has calcified leaflets. There is no mitral valve stenosis. There is mild mitral valve regurgitation. Tricuspid Valve The tricuspid valve leaflets are normal. There is no significant tricuspid valve stenosis. There is mild tricuspid valve regurgitation. Mild pulmonary hypertension, estimated pulmonary arterial systolic pressure is 38 mmHg. Other Findings There is a large extracardiac mass that is anterior to the RV free wall causing significant compression on the right ventricle. It measures at least 6.6 x 5.7 cm by echo and is consistent with extracardiac mass seen on CT scan. Inferior Vena Cava Dilated inferior vena cava with <50% collapse upon ins
[2021-07-09 00:13] LABS: Troponin I 0.373 ng/mL (0.000-0.034)
[2021-07-09 05:07] LABS: Hematocrit 40.9 % (37.0-47.0); Hemoglobin 13.4 g/dL (12.0-15.0); Mean Corpuscular HGB Conc 32.8 g/dl (32-36); Mean Corpuscular Hemoglobin 28.5 pg (26-34); Mean Corpuscular Volume 86.8 fl (80-100); Mean Platelet Volume 9.6 fl (7.4-10.4); Platelet Count Result 135 k/mm3 (150-375); Red Blood Count 4.71 M/mm3 (4.2-5.4); Red Cell Distribution Width 18.5 % (11.5-14.5); White Blood Count 17.4 K/mm3 (4.5-10.0)
[2021-07-09 05:23] LABS: Anion Gap 3 mmol/L (8-16); Blood Urea Nitrogen 25 mg/dL (7-17); Calcium 8.1 mg/dL (8.4-10.2); Carbon Dioxide 31 mmol/L (22-30); Chloride 100 mmol/L (98-107); Estimated CRCL calculation 43 ml/min; Estimated Glomerular Filt Rate > 60; Glucose 96 mg/dL (65-110); Potassium 4.3 mmol/L (3.4-5.0); Sodium 134 mmol/L (137-145)
[2021-07-09] MEDS: LEVOTHYROXINE SODIUM 75 MCG TABLET PO (05:25)
--- NOTE | 2021-07-09 07:56 | ECG_ITS ---
Measurements Intervals [place] Rate: 104 P: 262 MD: 233 QRS: -90 QRSD: 80 T: 76 QT: 362 QTc: 478 Interpretive Statements ATRIAL FLUTTER/TACHYCARDIA WITH RAPID VENTRICULAR RESPONSE CONSIDER RIGHT VENTRICULAR HYPERTROPHY LOW QRS VOLTAGE IN PRECORDIAL LEADS POOR R WAVE PROGRESSION, ANTERIOR LEADS INFERIOR INFARCT, AGE INDETERMINATE BORDERLINE T WAVE ABNORMALITY- HIGH LATERAL LEADS ABNORMAL ECG Electronically Signed On 07-09-2021 9:02:20 CDT by Joaquin Strong D.O.
[2021-07-09 08:45] LABS: Troponin I 0.378 ng/mL (0.000-0.034)
[2021-07-09] MEDS: lisinopriL 10 MG TABLET PO (09:09)
[2021-07-09] MEDS: SIMVASTATIN 20 MG TABLET PO (09:09)
[2021-07-09] MEDS: SOLIFENACIN 5 MG TABLET 10 MG PO (09:09)
[2021-07-09 09:53] LABS: Glucose Point of Care 107 mg/dl (65-105)
[2021-07-09 11:48] LABS: Glucose Point of Care 108 mg/dl (65-105)
--- NOTE | 2021-07-09 12:01 | PM.IMPN ---
Progress Note: A&P Assessment and Plan (1) Lung mass: Code(s): R91.8 - Other nonspecific abnormal finding of lung field <Vinita Fay PA-C - Last Filed: 07/09/21 16:07> Status: Acute <Vinita Fay PA-C - Last Filed: 07/09/21 16:07> Assessment and Plan: # lung masses/nodules which has progressed with additional mediastinal lymphadenopathy. CT chest with progression with involvement of left epicardial 8 cm mass invading the pericardium and severely narrowed pulmonary artery outflow track along with moderate left pleural effusion all suggestive of metastatic lung cancer. Will further evaluate with left pleural fluid analysis. If positive will be helpful for staging as well. Oncology has been consulted from the ER and will await their recommendation. Thoracentesis scheduled for today. <Vinita Fay PA-C - Last Filed: 07/09/21 16:07> (2) Pleural effusion, left: Code(s): J90 - Pleural effusion, not elsewhere classified <Vinita Fay PA-C - Last Filed: 07/09/21 16:07> Status: Acute <Vinita Fay PA-C - Last Filed: 07/09/21 16:07> Assessment and Plan: # moderate left pleural effusion, pending left thoracentesis for pleural fluid analysis <Vinita Fay PA-C - Last Filed: 07/09/21 16:07> (3) COPD (chronic obstructive pulmonary disease): Code(s): J44.9 - Chronic obstructive pulmonary disease, unspecified <Vinita Fay PA-C - Last Filed: 07/09/21 16:07> Status: Acute <Vinita Fay PA-C - Last Filed: 07/09/21 16:07> Assessment and Plan: # possible pneumonia with leukocytosis will continue ceftriaxone and azithromycin #will check procalcitonin # long history of smoking 62 pack year smoking # COPD continue albuterol inhaler as needed <Vinita Fay PA-C - Last Filed: 07/09/21 16:07> (4) Hypothyroidism: Code(s): E03.9 - Hypothyroidism, unspecified <DEZ KimbleC - Last Filed: 07/09/21 16:07> Status: Acute <Vinita RodriguezDEZ lizamaC - Last Filed: 07/09/21 16:07> Assessment and Plan: # will check TSH, continue home meds <Vinita Baker DEZ FayC - Last Filed: 07/09/21 16:07> (5) Diabetes mellitus, type II: Code(s): E11.9 - Type 2 diabetes mellitus without complications <Vinita RodriguezDEZ lizamaC - Last Filed: 07/09/21 16:07> Status: Acute <Vinita RodriguezCHARMAINE lizama-C - Last Filed: 07/09/21 16:07> Assessment and Plan: Serum glucose this morning 96, continue home meds, will monitor closely due to concurrent infection <Vinita Baker DEZ FayC - Last Filed: 07/09/21 16:07> (6) Hyperlipidemia: Code(s): E78.5 - Hyperlipidemia, unspecified <Vinita RodriguezDEZ lizamaC - Last Filed: 07/09/21 16:07> Status: Acute <Vinita Baker DEZ FayC - Last Filed: 07/09/21 16:07> Assessment and Plan: LFTs minimally elevated. Continue home meds. <Vinita Baker DEZ FayC - Last Filed: 07/09/21 16:07> (7) Hypertension: Code(s): I10 - Essential (primary) hypertension <Vinita Baker DEZ FayC - Last Filed: 07/09/21 16:07> Status: Acute <Vinita RodriguezDEZ lizamaC - Last Filed: 07/09/21 16:07> Assessment and Plan: Blood pressure seems to be well controlled, will continue home meds <Vinita Baker HERBERT Fay - Last Filed: 07/09/21 16:07> (8) Tobacco abuse: Code(s): Z72.0 - Tobacco use <Vinita Baker DEZ FayC - Last Filed: 07/09/21 16:07> Status: Acute <Vinitasybil Fay PA-C - Last Filed: 07/09/21 16:07> Assessment and Plan: Current smoker 1 ppd x 61 years. Will do nicotine patch during admission. <Vinita Fay PA-C - Last Filed: 07/09/21 16:07> (9) Jaelyn: Code(s): K92.1 - Jaelyn <HERBERT Kimble Last Filed: 07/09/21 16:
--- NOTE | 2021-07-09 12:48 | PDONCCN ---
HPI - Date of Consult Date/Time: 07/09/21 12:48 Requesting Physician: Fred Caruso MD Primary Care Provider: Adore Arzate PAC - Consult Narrative Reason for consult: Likely metastatic lung cancer Narrative: Machelle Swain is a 81 year old female with history of COPD and type 2 diabetes along with history of smoking almost 1 pack per day for 62 years duration. According to the patient she was found to have a small dot in the right lung but no further workup including biopsy was done. She now came into the hospital with complain of worsening shortness of breath along with nonproductive cough [place] and generalized weakness. She had no fevers and chills. She also had low-grade fever 2 weeks ago and was treated with antibiotics. She did not feel any better and came into the ER. CT scan was performed that showed no evidence of pulmonary embolism but progression of malignancy including left epicardial 8 cm mass invading the pericardium as well as progression of lung nodules and mediastinal lymphadenopathy. There was development of osteolytic disease and moderate left-sided pleural effusion. She had left-sided thoracentesis performed today. Her breathing has improved. Denies any weight loss. Denies any bone pain. No other new complaints. Review of Systems - Review of Systems All systems reviewed & are unremarkable except as noted in HPI and bel - Neurologic Reports weakness [facility] [place] Medical History: Medical History (Last Updated 07/09/21 @ 12:38 by Vinita Fay PA-C) COPD (chronic obstructive pulmonary disease) Diabetes mellitus, type II Family History: Family History (Last Updated 07/08/21 @ 21:29 by Brianna Roberto RN) Sibling Diabetes mellitus Father Family history of heart disease in male family member before age 55 Acute myocardial infarction Cerebrovascular accident Mother No problems noted. Sibling Asthma - Social History Social History: Social History (Last Reviewed 07/08/21 @ 18:50 by Ryann Coyne MD) Alcohol Use: Alcohol intake: never Substance Use: Substance use: never Others: Spiritual care concerns: No Smoking Status: Smoking status: Current every day smoker Tobacco type: cigarettes Smoking Pack-years: Smoking packs per day: 1 Smoking cigarettes per day: 20.0 Years smoked: 64 Smoking pack-years: 64.00 Meds Home Medications Medication Instructions Recorded Confirmed Type levothyroxine [Synthroid] 75 mcg PO DAILY 07/08/21 07/08/21 History linaclotide [Linzess] 145 mcg PO QMWF 07/08/21 07/08/21 History lisinopril 10 mg PO DAILY 07/08/21 07/08/21 History semaglutide [Ozempic] 0.5 mg SUBCUT WEEKLY 07/08/21 07/08/21 History simvastatin 20 mg PO QAM 07/08/21 07/08/21 History solifenacin 10 mg PO DAILY 07/08/21 07/08/21 History Allergies Allergy/AdvReac Type Severity Reaction Status Date / Time No Known Allergies Allergy Verified 07/08/21 21:16 Results - Labs CBC & Chem 7: 07/09/21 04:25 07/09/21 04:25 Labs: Short CBC 07/08/21 07/09/21 Range/Units 17:20 04:25 WBC 19.4 H 17.4 H (4.5-10.0) K/mm3 Hgb 14.2 13.4 (12.0-15.0) g/dL Hct 44.0 40.9 (37.0-47.0) % Plt Count 163 135 L (150-375) k/mm3 BMP 07/08/21 07/09/21 17:20 04:25 Sodium 134 L 134 L Potassium 4.5 4.3 Chloride 98 100 Carbon Dioxide 33 H 31 H BUN 30 H 25 H Creatinine 1.00 0.80 Glucose 159 H 96 Calcium 8.9 8.1 L Cardiac Enzymes 07/08/21 07/08/21 07/09/21 Range/Units 17:20 23:19 08:13 Troponin I 0.380 H* 0.373 H* 0.378 H* (0.000-0.034) ng/mL Liver Function 07/08/21 Range/Units 17:20 Total Bilirubin 0.3 (0.2-1.3) mg/dL AST 39 H (14-36) U/L ALT 58 H (4-35) U/L Alkaline Phosphatase 149 H (38-126) U/L Albumin 3.1 L (3.5-5.1) g/dL Urine 07/08/21 Range/Units 19:16 Urine Color Yellow (Yellow) Urine Appearance Clear (C
[2021-07-09 12:50] LABS: pH Pleural Fluid 7.486 (7.210-7.500)
--- NOTE | 2021-07-09 13:45 | PC.NURSE ---
On 07/09/21, the student, Samara [facility], provided care and completed [employer] documentation on this patient. I have reviewed the student's documentation and agree with the findings.
[2021-07-09 14:13] LABS: Free T4 Free Thyroxine Reflex 1.59 ng/dL (0.78-2.19)
[2021-07-09] MEDS: NICOTINE (*PBKC) 14 MG PATCH 1 PATCH TRANSDERM (14:20)
[2021-07-09] MEDS: PERFLUTREN LIPID MICROSPHERES 1.5 ML VIAL DILUTED TO 10 ML TOTAL VOLUME IV PUSH (15:06)
[2021-07-09 16:40] LABS: Basophils Absolute Auto 0.1 K/mm3 (0.0-0.1); Basophils Percent Auto 0.3 % (0.2-1.2); Eosinophils Absolute Auto 2.4 K/mm3 (0-0.3); Eosinophils Percent Auto 13.8 % (0-4.4); Hematocrit 43.1 % (37.0-47.0); Hemoglobin 13.8 g/dL (12.0-15.0); Immature Granulocyte Absolute 0.35 K/mm3 (0.00-0.031); Lymphocytes Absolute Auto 1.69 K/mm3 (0.9-3.2); Lymphocytes Percent Auto 9.8 % (18.3-44.2); Mean Corpuscular Hemoglobin 26.6 pg (26-34); Mean Platelet Volume 8.6 fl (7.4-10.4); Monocytes Absolute Auto 1.1 K/mm3 (0.1-0.6); Monocytes Percent Auto 6.5 % (2.6-8.5); Neutrophils Absolute Auto 11.7 K/mm3 (1.3-6.7); Neutrophils Percent Auto 67.6 % (45.5-73.1); Platelet Count Result 140 k/mm3 (150-375); Red Blood Count 5.19 M/mm3 (4.2-5.4); Red Cell Distribution Width 17.1 % (11.5-14.5); White Blood Count 17.3 K/mm3 (4.5-10.0)
[2021-07-09 17:03] LABS: Glucose Point of Care 190 mg/dl (65-105)
[2021-07-09] MEDS: ONDANSETRON INJ 4 MG/2 ML VIAL (17:38)
[2021-07-09] MEDS: HEPARIN SODIUM 5,000 UNITS/ML VIAL 5000 UNITS SUB-Q (20:27)
[2021-07-09 20:29] LABS: Total Triiodothyronine (T3) 0.83 NG/ML (0.97-1.69)
[2021-07-10] VITALS (11 sets, daily range): BP systolic 103–124; BP diastolic 64–81; PULSE 69–92; RESP 16; TEMP 36.3–36.6; O2SAT 94–98
[2021-07-10 04:53] LABS: Basophils Absolute Auto 0.1 K/mm3 (0.0-0.1); Basophils Percent Auto 0.4 % (0.2-1.2); Eosinophils Absolute Auto 2.1 K/mm3 (0-0.3); Eosinophils Percent Auto 15.4 % (0-4.4); Hematocrit 39.8 % (37.0-47.0); Hemoglobin 12.9 g/dL (12.0-15.0); Immature Granulocyte Absolute 0.34 K/mm3 (0.00-0.031); Immature Granulocyte Percent A 2.5 % (0-0.5); Lymphocytes Percent Auto 11.7 % (18.3-44.2); Mean Corpuscular HGB Conc 32.4 g/dl (32-36); Mean Corpuscular Hemoglobin 27.6 pg (26-34); Mean Corpuscular Volume 85.2 fl (80-100); Mean Platelet Volume 8.9 fl (7.4-10.4); Monocytes Absolute Auto 1.1 K/mm3 (0.1-0.6); Monocytes Percent Auto 7.7 % (2.6-8.5); Neutrophils Absolute Auto 8.5 K/mm3 (1.3-6.7); Neutrophils Percent Auto 62.3 % (45.5-73.1); Platelet Count Result 120 k/mm3 (150-375); Red Blood Count 4.67 M/mm3 (4.2-5.4); Red Cell Distribution Width 18.2 % (11.5-14.5); White Blood Count 13.7 K/mm3 (4.5-10.0)
[2021-07-10 05:22] LABS: Alanine Aminotransferase 43 U/L (4-35); Albumin Level 2.6 g/dL (3.5-5.1); Alkaline Phosphatase 166 U/L (38-126); Anion Gap 2 mmol/L (8-16); Aspartate Amino Transferase 38 U/L (14-36); Bilirubin,Total 0.4 mg/dL (0.2-1.3); Blood Urea Nitrogen 22 mg/dL (7-17); Calcium 8.2 mg/dL (8.4-10.2); Carbon Dioxide 33 mmol/L (22-30); Chloride 98 mmol/L (98-107); Estimated CRCL calculation 38 ml/min; Estimated Glomerular Filt Rate 60; Glucose 105 mg/dL (65-110); Potassium 4.4 mmol/L (3.4-5.0); Sodium 133 mmol/L (137-145)
[2021-07-10 05:24] LABS: NT Pro B Type Natriuretic Pept 1920 pg/mL (5-100)
[2021-07-10] MEDS: LEVOTHYROXINE SODIUM 75 MCG TABLET PO (05:38)
[2021-07-10] MEDS: HEPARIN SODIUM 5,000 UNITS/ML VIAL 5000 UNITS SUB-Q ×2 (05:38→14:50)
[2021-07-10] MEDS: NICOTINE (*PBKC) 14 MG PATCH 1 PATCH TRANSDERM ×2 (08:36→12:37)
[2021-07-10] MEDS: SOLIFENACIN 5 MG TABLET 10 MG PO (08:37)
[2021-07-10] MEDS: SIMVASTATIN 20 MG TABLET PO (08:38)
[2021-07-10 08:40] LABS: Glucose Point of Care 101 mg/dl (65-105)
[2021-07-10 11:30] LABS: Glucose Point of Care 157 mg/dl (65-105)
--- NOTE | 2021-07-10 12:01 | PM.IMPN ---
Progress Note: A&P Assessment and Plan (1) Lung mass: Code(s): R91.8 - Other nonspecific abnormal finding of lung field Status: Acute Assessment and Plan: Chest CTA 07/08 showing no PE but progression of malignancy including left epicardial 8 cm mass invading the pericardium and probably the pulmonary artery severely narrowing its outflow tract lumen. Also with progression of lung nodules, mediastinal lymphadenopathy, development of osteolytic disease and moderate left pleural effusion. Echo EF 70%, Grade I DD. Large extracardiac mass (6.6x5.7cm) anterior to the RV free wall causing compression of the RV Brain MRI showing o acute findings. CT A/P showing pleural-based left lung masses and anterior mediastinal mass and T8 spinous process mass, consistent with metastatic disease and nodular wall thickening of noncontiguous small bowel loops in left abdomen and left-sided mesenteric lymphadenopathy, consistent with metastatic disease. Status post left thoracentesis with Pathology pending. Appreciate oncology input. [place] most likely lung cancer. Records from [facility] requested. Start PT/OT. Increase activity. (2) Elevated troponin: Code(s): R77.8 - Other specified abnormalities of plasma proteins Status: Acute Assessment and Plan: Serial troponin elevated but flat at 0.378, 0.373, 0.380. Echo as above. No chest pain. EKG reviewed, shows inverted T waves in the septal leads. [place] elevated Trop related to above. Doubt ACS or myocardial injury. (3) Pleural effusion, left: Code(s): J90 - Pleural effusion, not elsewhere classified Status: Acute Assessment and Plan: Chest x-ray 07/08 shows left lower lobe airspace disease likely malignancy with small malignant pleural effusion. She is status post left thoracentesis with removal of 725 mL of clear yellow fluid. Patient clinically feels better. Pathology is pending. Majority of the other routine labs are pending. Doubt she has pneumonia so will stop Rocephin but will finish a course of Azithro since she has COPD to cover for acute bronchitis. (4) Melena: Code(s): K92.1 - Melena Status: Acute Assessment and Plan: Patient reports 1 episode of melena. Hemoglobin is stable in the normal range. Stool guaiac has been ordered. Will cancel GI consult at this time. (5) COPD (chronic obstructive pulmonary disease): Code(s): J44.9 - Chronic obstructive pulmonary disease, unspecified Status: Acute Assessment and Plan: no wheezing. Patient continues to smoke. No hypoxia. Continue to monitor. (6) Diabetes mellitus, type II: Code(s): E11.9 - Type 2 diabetes mellitus without complications Status: Acute Assessment and Plan: The patient's blood glucose was reviewed on 07/10 Glucose remains well controlled. Continue AccuCheks covering with sliding scale. Hypoglycemia protocol available as needed. Continue to monitor (7) Hypertension: Code(s): I10 - Essential (primary) hypertension Status: Acute Assessment and Plan: Patient's blood pressure was reviewed on 07/10 Blood pressure remains well controlled. Will continue to monitor. (8) Hypothyroidism: Code(s): E03.9 - Hypothyroidism, unspecified Status: Acute Assessment and Plan: TSH slightly elevated at 4.9 but free T4 normal. Continue Synthroid. (9) Tobacco abuse: Code(s): Z72.0 - Tobacco use Status: Acute Assessment and Plan: Current smoker 1 ppd x 61 years. Continue nicotine patch. She was educated about the benefits of smoking cessation. (10) DVT prophylaxis: Code(s): Z29.9 - Encounter for prophylactic measures, unspecified Status: Acute Assessment and Plan: Heparin Subjective Date/time seen: 07/10/21 12:01 Interval history: 81yo female with DM, COPD and who continues to smoke here for weakness, cough and SOB.
--- NOTE | 2021-07-10 12:47 | WPDONCPN ---
Progress Note: A/P - Additional Plan Likely metastatic non-small cancer. Patient has a history of left kidney nodule that was removed 10 years ago and according to patient was benign. CT abdomen was performed that showed pleural-based lung masses with anterior mediastinal mass and T8 spinous mass along with nodule wall thickening of a small bowel loop in the left abdomen and left-sided mesenteric lymphadenopathy. There was trace right and small left-sided pleural effusion. Differential diagnosis include primary bronchogenic carcinoma or renal cell carcinoma. Pathology is pending from the thoracentesis fluid. MRI brain came back unremarkable. Patient will follow-up with me in the office for pathology review and further management. - Time Spent With Patient Total time spent is greater than 50% in coordination of care (as documented) at patient's floor/unit and/or counseling patient: 15 - 25 minutes Subjective Interval history: Likely metastatic non-small cell lung cancer Review of Systems - Review of Systems Patient seems to be quite comfortable in this came back from the MRI of the brain. She denies any headache but does have some runny nose. Denies any abdominal pain and chest pain. No other new complaints. - Neurologic Reports weakness Exam Vital signs: Temp Pulse Resp BP Pulse Ox 36.6 C 92 16 120/69 95 07/10/21 08:30 07/10/21 08:30 07/10/21 08:30 07/10/21 08:30 07/10/21 08:30 Narrative: Lungs are clear to auscultation bilaterally Cardiovascular regular rate rhythm no murmurs Abdomen soft nontender nondistended bowel sounds are positive Extremities no edema PN: Objective Data - Labs CBC & Chem 7: 07/10/21 04:19 07/10/21 04:19 Labs: Laboratory Results - last 24 hr 07/09/21 07/09/21 07/09/21 08:13 08:13 08:13 WBC RBC Hgb Hct MCV MCH MCHC RDW Plt Count MPV Immature Gran % (Auto) Neut % (Auto) Lymph % (Auto) Moca % (Auto) Eos % (Auto) Baso % (Auto) Lymph # (Auto) Moca # (Auto) Eos # (Auto) Baso # (Auto) Abs Immat Gran (auto) Absolute Neuts (auto) Absolute Nucleated RBC Nucleated RBC % Sodium Potassium Chloride Carbon Dioxide Anion Gap BUN Creatinine Estim Creat Clear Calc Estimated GFR Glucose POC Capillary Glucose Calcium Total Bilirubin AST ALT Alkaline Phosphatase NT-Pro-B Natriuret Pep Total Protein Albumin TSH (Reflex) 4.990 H Free T4 1.59 Total T3 0.83 L Pleural pH 07/09/21 07/09/21 07/09/21 12:12 16:24 16:29 WBC 17.3 H RBC 5.19 Hgb 13.8 Hct 43.1 MCV 83.0 MCH 26.6 D MCHC 32.0 RDW 17.1 H Plt Count 140 L MPV 8.6 Immature Gran % (Auto) 2.0 H Neut % (Auto) 67.6 Lymph % (Auto) 9.8 L Moca % (Auto) 6.5 Eos % (Auto) 13.8 H Baso % (Auto) 0.3 Lymph # (Auto) 1.69 Moca # (Auto) 1.1 H Eos # (Auto) 2.4 H Baso # (Auto) 0.1 Abs Immat Gran (auto) 0.35 H Absolute Neuts (auto) 11.7 H Absolute Nucleated RBC 0.0 Nucleated RBC % 0.0 Sodium Potassium Chloride Carbon Dioxide Anion Gap BUN Creatinine Estim Creat Clear Calc Estimated GFR Glucose POC Capillary Glucose 190 H Calcium Total Bilirubin AST ALT Alkaline Phosphatase NT-Pro-B Natriuret Pep Total Protein Albumin TSH (Reflex) Free T4 Total T3 Pleural pH 7.486 07/10/21 07/10/21 07/10/21 04:19 04:19 08:37 WBC 13.7 H RBC 4.67 Hgb 12.9 Hct 39.8 MCV 85.2 MCH 27.6 MCHC 32.4 RDW 18.2 H Plt Count 120 L MPV 8.9 Immature Gran % (Auto) 2.5 H Neut % (Auto) 62.3 Lymph % (Auto) 11.7 L Moca % (Auto) 7.7 Eos % (Auto) 15.4 H Baso % (Auto) 0.4 Lymph # (Auto) 1.60 Moca # (Auto) 1.1 H Eos # (Auto) 2.1 H Baso # (Auto) 0.1 Abs Immat Gran
--- NOTE | 2021-07-10 13:36 | PCOTNOTE ---
Addendum entered by Earline Garcia, RAPHAEL 07/11/21 08:49: Pt. not transferred to IMU yesterday, miscommunication with nursing. Pt. was instead awaiting pick-up to receive MRI. Original Note: Attempted to see for evaluation. Pt. being transferred to IMU per nurse report. Will follow-up to attempt at later time.
[2021-07-10] MEDS: PROMETHAZINE HCL 12.5 MG TABLET PO (14:33)
[2021-07-10] MEDS: AZITHROMYCIN 250 MG TABLET PO (14:33)
[2021-07-10 16:38] LABS: Glucose Point of Care 186 mg/dl (65-105)
--- NOTE | 2021-07-10 17:02 | WPDGICN ---
Assessment and Plan Assessment and plan (1) Melena: Code(s): K92.1 - Melena Status: Acute Assessment and Plan: she had dark stool but once, no obvious blood and her hb relatively since admission no need to perform egd unless obvious bleeding ok to use ppi for prophylaxis call if questions (2) Lung mass: Code(s): R91.8 - Other nonspecific abnormal finding of lung field Status: Acute Assessment and Plan: main problem and apparently mets oncology on board already had thoracentesis (3) Pleural effusion, left: Code(s): J90 - Pleural effusion, not elsewhere classified Status: Acute (4) Diabetes mellitus, type II: Code(s): E11.9 - Type 2 diabetes mellitus without complications Status: Acute GI Consult Note Consult date/time: 07/10/21 17:02 Reason for consult: melena HPI: Machelle Swain is a 81 year old female with history of COPD and type 2 diabetes and smoking almost 1 pack per day for several years. She came to the hospital with worsening shortness of breath along with nonproductive cough and generalized weakness, also had one episode of dark stool before admission. CT scan reviewed and showed no evidence of pulmonary embolism but progression of malignancy including left epicardial 8 cm mass invading the pericardium as well as progression of lung nodules and mediastinal lymphadenopathy. There was development of osteolytic disease and moderate left-sided pleural effusion. She underwent left-sided thoracentesis. She has not had any more dark stools or blood, denies history of gib and her hb since admission stable. Review of Systems Constitutional: Constitutional: Reports fatigue Eyes: Eyes: Denies blurry vision ENT: Reports Normal hearing present Cardiovascular: Cardiovascular: Denies chest pain Respiratory: Respiratory: Reports cough and Reports dyspnea on exertion Gastrointestinal: Gastrointestinal: Denies abdominal pain and Denies nausea Genitourinary: Genitourinary: Denies hematuria Musculoskeletal: Musculoskeletal: Denies neck pain Integumentary/Breasts: Skin/Breast: Denies dry skin Neurologic: Reports system reviewed and no additional complaints, except as documented Psychiatric: Psychiatric: Reports no additional psychiatric complaints [facility] Past Medical History Medical History (Updated 07/10/21 @ 12:52 by Beni Gallardo MD) COPD (chronic obstructive pulmonary disease) Diabetes mellitus, type II Family History Family History (Updated 07/08/21 @ 21:29 by Brianna Roberto RN) Sibling Diabetes mellitus Father Family history of heart disease in male family member before age 55 Acute myocardial infarction Cerebrovascular accident Mother No problems noted. Sibling Asthma Social History Social History Smoking packs per day: 1 Smoking cigarettes per day: 20.0 Years smoked: 64 Smoking pack-years: 64.00 Smoking status: Current every day smoker Tobacco type: cigarettes Alcohol intake: never Substance use: never Spiritual care concerns: No Meds Home Medications and Allergies Home Medications Medication Instructions Recorded Confirmed Type levothyroxine [Synthroid] 75 mcg PO DAILY 07/08/21 07/08/21 History linaclotide [Linzess] 145 mcg PO QMWF 07/08/21 07/08/21 History lisinopril 10 mg PO DAILY 07/08/21 07/08/21 History semaglutide [Ozempic] 0.5 mg SUBCUT WEEKLY 07/08/21 07/08/21 History simvastatin 20 mg PO QAM 07/08/21 07/08/21 History solifenacin 10 mg PO DAILY 07/08/21 07/08/21 History Allergies Allergy/AdvReac Type Severity Reaction Status Date / Time No Known Allergies Allergy Verified 07/08/21 21:16 Vital Signs Vital Signs - 24 hr 07/09/21 17:20 07/09/21 18:00 07/09/21 19:35 Temperature 98.2 F 97 F L Pulse Rate 97 104 H 95 Respiratory Rate 18 18 Blood Pressure 108/65 124/83 Pulse Oximetry 94 95 07/09/21 20
--- NOTE | 2021-07-10 20:48 | PC.NURSE ---
No call received regarding +urine culture, appears to be first positive result. Dr Ambriz given results of +Flori krusei. No new orders received.
[2021-07-11] VITALS (7 sets, daily range): BP systolic 101–119; BP diastolic 50–81; PULSE 91–118; RESP 16–18; TEMP 36.1–37.2; O2SAT 94–96
[2021-07-11 03:04] LABS: Glucose Point of Care 134 mg/dl (65-105)
[2021-07-11 05:41] LABS: Hematocrit 41.3 % (37.0-47.0); Hemoglobin 13.5 g/dL (12.0-15.0); Mean Corpuscular HGB Conc 32.7 g/dl (32-36); Mean Corpuscular Hemoglobin 28.5 pg (26-34); Mean Corpuscular Volume 87.3 fl (80-100); Mean Platelet Volume 9.8 fl (7.4-10.4); Platelet Count Result 128 k/mm3 (150-375); Red Blood Count 4.73 M/mm3 (4.2-5.4); Red Cell Distribution Width 17.9 % (11.5-14.5); White Blood Count 14.1 K/mm3 (4.5-10.0)
[2021-07-11 05:53] LABS: Anion Gap 3 mmol/L (8-16); Blood Urea Nitrogen 22 mg/dL (7-17); Calcium 8.5 mg/dL (8.4-10.2); Carbon Dioxide 27 mmol/L (22-30); Chloride 101 mmol/L (98-107); Estimated CRCL calculation 43 ml/min; Estimated Glomerular Filt Rate > 60; Glucose 112 mg/dL (65-110); Potassium 4.6 mmol/L (3.4-5.0); Sodium 131 mmol/L (137-145)
[2021-07-11] MEDS: LEVOTHYROXINE SODIUM 75 MCG TABLET PO (06:38)
[2021-07-11] MEDS: HEPARIN SODIUM 5,000 UNITS/ML VIAL 5000 UNITS SUB-Q ×2 (06:42)
[2021-07-11 07:22] LABS: Glucose Point of Care 120 mg/dl (65-105)
[2021-07-11] MEDS: AZITHROMYCIN 250 MG TABLET PO (09:54)
[2021-07-11] MEDS: SIMVASTATIN 20 MG TABLET PO (09:54)
[2021-07-11] MEDS: SOLIFENACIN 5 MG TABLET 10 MG PO (09:54)
[2021-07-11] MEDS: Linaclotide [Linzess] 145 mcg capsule 145 EACH BY MOUTH (09:55)
[2021-07-11] MEDS: NICOTINE (*PBKC) 14 MG PATCH 1 PATCH TRANSDERM (09:55)
[2021-07-11 11:51] LABS: Glucose Point of Care 112 mg/dl (65-105)
--- NOTE | 2021-07-11 12:13 | PCNFU ---
Nutrition Follow-Up Complete: Inadequate oral intake related to diet order as evidenced by NPO. Goal: Patient to meet estimated nutritional needs. Patient meeting current nutrition goal, No new goal. Pt current nutrition is Regular with Ensure Compact BID. Last recorded weight is 71.1 kg down from 73.3 kg on admit. Bowel Motility:No BM reported. Labs Reviewed:Glu 112,Na 131, BUN 22 Meds Noted:Synthroid, Heparin, Zithromax, Zocor, Prinivil, Vesicare. Additional Notes: Nutrition follow up. Patient states to tolerated regular diet orders. Intake 80-100% of meals. Diet supplements of Ensure compact is providing patient with an additional 220 kcals and 9 gms protein. Agree with diet orders. Skin: WNL. Monitoring: Follow up every 5 days.
--- NOTE | 2021-07-11 12:38 | PM.IMPN ---
Progress Note: A&P Assessment and Plan (1) Lung mass: Code(s): R91.8 - Other nonspecific abnormal finding of lung field Status: Acute Assessment and Plan: The following studies have been performed: Chest CTA 07/08 showing no PE but progression of malignancy including left epicardial 8 cm mass invading the pericardium and probably the pulmonary artery severely narrowing its outflow tract lumen. Also with progression of lung nodules, mediastinal lymphadenopathy, development of osteolytic disease and moderate left pleural effusion. Echo EF 70%, Grade I DD. Large extracardiac mass (6.6x5.7cm) anterior to the RV free wall causing compression of the RV Brain MRI showing o acute findings. CT A/P showing pleural-based left lung masses and anterior mediastinal mass and T8 spinous process mass, consistent with metastatic disease and nodular wall thickening of noncontiguous small bowel loops in left abdomen and left-sided mesenteric lymphadenopathy, consistent with metastatic disease. Status post left thoracentesis with Pathology showing scant number of cells Old records from [facility] from December: patient noted to have malignant neoplasm of the kidney s/p partial left nephrology. Notes state that the patient has a anterior mediastinal mass with plans for follow-up in 3 mnths (no bx in December due to the infection). Anterior chest wall culture with actinomyces and actinotignum; path AFB(+) organism but suspision for mycobacterium infection is very low . Patient had a renal mass resected in 2011 elsewhere with imaging concerning for RCC. Spoke with radiology and all films reviewed. It appears the patient has had small lung nodules for many years with a PET scan in 2019 showing increased activity but no increase in size. Images here show malignant type lesions in the abdomen that could have been seeded from the surgery site. There is a lesion that could be biopsed and spoke with oncology who recommended proceeding with biopsy. Patietn agreeeable so this was ordered. Discussed with family with patient's permission. (2) Elevated troponin: Code(s): R77.8 - Other specified abnormalities of plasma proteins Status: Acute Assessment and Plan: Serial troponin elevated but flat at 0.378, 0.373, 0.380. Echo as above. No chest pain. EKG reviewed, shows inverted T waves in the septal leads. [place] elevated Trop related to above. Doubt ACS or myocardial injury. Possibly related to the abutting malignant mass (3) Pleural effusion, left: Code(s): J90 - Pleural effusion, not elsewhere classified Status: Acute Assessment and Plan: Chest x-ray 07/08 shows left lower lobe airspace disease likely malignancy with small malignant pleural effusion. She is status post left thoracentesis with removal of 725 mL of clear yellow fluid. Patient clinically feels better. Pathology final is pending. Majority of the other routine labs are pending. Doubt she has pneumonia so will stop Rocephin but will finish a course of Azithro since she has COPD to cover for acute bronchitis. (4) Melena: Code(s): K92.1 - Melena Status: Acute Assessment and Plan: Patient reports 1 episode of melena. Hemoglobin is stable in the normal range. Stool guaiac has been ordered. (5) COPD (chronic obstructive pulmonary disease): Code(s): J44.9 - Chronic obstructive pulmonary disease, unspecified Status: Acute Assessment and Plan: No wheezing. Patient continues to smoke. No hypoxia. Continue to monitor. (6) Diabetes mellitus, type II: Code(s): E11.9 - Type 2 diabetes mellitus without complications Status: Acute Assessment and Plan: The patient's blood glucose was reviewed on 07/11 Glucose remains well controlled. Continue AccuCheks covering with sliding scale. Hypoglycemia protocol available as needed. Continue to monitor (7) Hypertension: Code(s): I10 - Essential (pr
[2021-07-11] MEDS: ACETAMINOPHEN 325 MG TABLET 650 MG PO (12:53)
--- NOTE | 2021-07-11 14:32 | WPDONCPN ---
Progress Note: A/P - Additional Plan Likely metastatic non-small cancer. Patient was diagnosed with kidney cancer status post partial nephrectomy. Case was discussed with Dr. Jonas. Immunostain has been ordered on the pleural fluid cytology and results may not be available until next week. There is a possibility that fluid cytology may come back inconclusive. I have also discussed this case with Dr. Gallardo and decided about performing biopsy of the abdominal mass or T8 spinous process. Patient will follow-up with me in the office after the discharge - Time Spent With Patient Total time spent is greater than 50% in coordination of care (as documented) at patient's floor/unit and/or counseling patient: 15 - 25 minutes Subjective Interval history: Likely metastatic non-small cell lung cancer History of renal cell carcinoma Review of Systems - Review of Systems Patient denies any abdominal pain and chest pain. Denies any melena hematochezia. Complain of tiredness and fatigue. Denies any shortness of breath. Patient is complaining of back pain. - Neurologic Reports system reviewed and no additional complaints, except as documented, Reports hearing normal, Reports weakness Exam Narrative: Lungs are clear to auscultation bilaterally Cardiovascular regular rate rhythm no murmurs Abdomen soft nontender nondistended bowel sounds are positive Extremities no edema PN: Objective Data - Labs CBC & Chem 7: 07/11/21 05:01 07/11/21 05:01 Labs: Laboratory Results - last 24 hr 07/10/21 07/11/21 07/11/21 16:32 00:04 05:01 WBC 14.1 H RBC 4.73 Hgb 13.5 Hct 41.3 MCV 87.3 MCH 28.5 MCHC 32.7 RDW 17.9 H Plt Count 128 L MPV 9.8 Sodium Potassium Chloride Carbon Dioxide Anion Gap BUN Creatinine Estim Creat Clear Calc Estimated GFR Glucose POC Capillary Glucose 186 H 134 H Calcium 07/11/21 07/11/21 07/11/21 05:01 06:44 11:48 WBC RBC Hgb Hct MCV MCH MCHC RDW Plt Count MPV Sodium 131 L Potassium 4.6 Chloride 101 Carbon Dioxide 27 Anion Gap 3 L BUN 22 H Creatinine 0.80 Estim Creat Clear Calc 43 Estimated GFR > 60 Glucose 112 H POC Capillary Glucose 120 H 112 H Calcium 8.5
[2021-07-11 16:35] LABS: Glucose Point of Care 153 mg/dl (65-105)
[2021-07-11 22:16] LABS: Glucose Point of Care 158 mg/dl (65-105)
[2021-07-12] VITALS: BP 114/74; PULSE 91; RESP 16; TEMP 36.1; O2SAT 97
[2021-07-12 04:00] VITALS: BP 128/60; PULSE 105; RESP 16; TEMP 35.6; O2SAT 95
[2021-07-12 04:58] LABS: Hematocrit 44.2 % (37.0-47.0); Mean Corpuscular HGB Conc 31.7 g/dl (32-36); Mean Corpuscular Hemoglobin 26.8 pg (26-34); Mean Corpuscular Volume 84.7 fl (80-100); Mean Platelet Volume 9.1 fl (7.4-10.4); Platelet Count Result 170 k/mm3 (150-375); Red Blood Count 5.22 M/mm3 (4.2-5.4); Red Cell Distribution Width 17.3 % (11.5-14.5); White Blood Count 14.6 K/mm3 (4.5-10.0)
[2021-07-12 05:08] LABS: Anion Gap 0 mmol/L (8-16); Blood Urea Nitrogen 28 mg/dL (7-17); Carbon Dioxide 35 mmol/L (22-30); Chloride 99 mmol/L (98-107); Estimated CRCL calculation 35 ml/min; Estimated Glomerular Filt Rate 53; Glucose 129 mg/dL (65-110); Potassium 4.8 mmol/L (3.4-5.0); Sodium 134 mmol/L (137-145)
[2021-07-12] MEDS: HEPARIN SODIUM 5,000 UNITS/ML VIAL 5000 UNITS SUB-Q (05:35)
[2021-07-12] MEDS: LEVOTHYROXINE SODIUM 75 MCG TABLET PO (05:35)
[2021-07-12 08:00] VITALS: BP 123/69; PULSE 96; RESP 16; TEMP 36.2; O2SAT 96
[2021-07-12 08:09] LABS: Glucose Point of Care 108 mg/dl (65-105)
--- NOTE | 2021-07-12 09:22 | PM.IMPN ---
Progress Note: A&P Additional Plan START OF DOCTOR LAZARUS?S PROGRESS NOTE Subjective: The patient endorses no complaints at this time. She denies fever, rigors, nausea, vomiting, cough, wheeze, abdominal pain, chest pain, dyspnea, or any other constitutional complaints. I have explained to the patient her current medical condition plan of care and I have answered all her questions Objective: General: -Alert -No acute distress -No dyspnea -No tachypnea Heart: -iRegular rate -Regular rhythm -1/6 systolic murmur present -No gallops -No rubs Lungs: -No wheeze -No rhonchi -trace bibasilar rales Abdomen: -Normal bowel sounds in all four quadrants -No rebound -No guarding -No tenderness Extremities: -2/4 pulse in all four extremities -No clubbing -No cyanosis -No edema Additional Details / Additional Findings / Exceptions / Miscellaneous: Pertinent Laboratory Results / Pertinent Radiology Results / Pertinent Diagnostic Results / Pertinent Vital Signs: Blood blood cell count 14.6, heart rate 105, sodium 134 Assessment / Plan: Left lung mass/masses. Per Hematology/Oncology, likely metastatic non-small cell carcinoma. Patient status post left thoracocentesis with aspiration of 725 mL of fluid on July 09, 2021 for which cytology studies are pending. Patient is status post T8 spinous process biopsy on July 11, 2021 for which pathology result pending patient has had the following images studies performed: 07/08/2021: CTA Chest: 2. Progression of malignancy including left epicardial 8 cm mass invading the pericardium and probably the pulmonary artery severely narrowing its outflow tract lumen. 3. Progression of lung nodules, mediastinal lymphadenopathy. 4. Development of osteolytic disease. 07/09/2021: CT A/P c Contrast: 1. Pleural-based left lung masses and anterior mediastinal mass and T8 spinous process mass, consistent with metastatic disease. Possible primary malignancies include renal cell carcinoma and bronchogenic carcinoma. 2. Nodular wall thickening of noncontiguous small bowel loops in left abdomen and left-sided mesenteric lymphadenopathy, consistent with metastatic disease. Possible primary malignancies include renal cell carcinoma, lymphoma, and bronchogenic carcinoma. 07/09/2021: Echo: There is a large extracardiac mass that is anterior to the RV free wall causing significant compression on the right ventricle. It measures at least 6.6 x 5.7 cm by echo and is consistent with extracardiac mass seen on CT scan. Outpatient follow-up with Hematology/Oncology Melena. I appreciate Gastroenterology evaluate the patient. Will monitor hemoglobin level intermittently Smoker. Patient counseled regarding smokes is cessation. Nicotine patch 14 mg daily Diabetes. Will check fingerstick glucose q.a.c. and HS and provide insulin sliding scale plus Ozempic 0.5 mg subcutaneously weekly COPD. A Zithromax and 20 50 mg p.o. daily Obesity. Patient counseled regarding lifestyle modification Hypothyroidism. Synthroid 775 mg p.o. daily IBS. Linzess 145 mg p.o. Q Wednesday, Wednesday, and Wednesday Hypertension Hyperlipidemia. Zocor 20 mg p.o. q.h.s. Overactive bladder. VESIcare 10 mg p.o. daily History of left renal carcinoma, status post left partial nephrectomy Grade 1 diastolic dysfunction Elevated troponin Hyponatremia. Will monitor sodium levels intermittently Transaminitis. Will monitor LFTs periodically with CMP Microscopic hematuria. Outpatient follow-up with Urology upon discharge especially given her history of tobacco abuse DVT prophylaxis. Heparin 5000 units subcutaneously q.8 hours Disposition: Patient medically stable for discharge on the day of July 12, 2021. I will discuss with case management/social work END OF DOCTOR LAZARUS?S PROGRESS NOTE Subjective Date/time seen: 07/12/21 09:22 Objective Data Vital Signs
[2021-07-12] MEDS: AZITHROMYCIN 250 MG TABLET PO (10:40)
[2021-07-12] MEDS: NICOTINE (*PBKC) 14 MG PATCH 1 PATCH TRANSDERM (10:41)
[2021-07-12] MEDS: SIMVASTATIN 20 MG TABLET PO (10:41)
[2021-07-12] MEDS: SOLIFENACIN 5 MG TABLET 10 MG PO (10:41)
[2021-07-12 12:05] LABS: Glucose Point of Care 143 mg/dl (65-105)
--- NOTE | 2021-07-12 12:10 | PM.DS ---
DS: Admitting Diagnosis Discharge Date 12:14 p.m. on July 12, 2021 Admitting Diagnosis Lung mass DS: Summary Hospital Course Hospital Course: See discharge summary below Time Spent with Patient Time attestation: Total time spent providing and/or coordinating discharge services: START OF DOCTOR LAZARUS?S DISCHARGE SUMMARY Date of Admission: July 08, 2021 Date of Discharge: 12:10 p.m. on on July 12, 2021 Primary Diagnosis: Lung mass which, per Hematology/Oncology, is likely metastatic non-small cells cancer. Patient status post left thoracocentesis in July 09, 2021 with aspiration 725 mL of fluid, patient status post T8 spinous process biopsy on July 11, 2021 Secondary Diagnosis: Melena Smoker Diabetes paragraph COPD paragraph obesity paragraph hypothyroidism IBS Hypertension Hyperlipidemia Overactive bladder History of left renal carcinoma, status post partial nephrectomy Grade 1 diastolic dysfunction Elevated troponin Hyponatremia Elevated liver function tests Microscopic hematuria Consultations: Gastroenterology, Hematology/Oncology Disposition: The patient will be advised follow-up with Hematology/Oncology 2 weeks post discharge or as directed for follow-up of cytology and biopsy results The patient will be advised follow-up with Gastroenterology as directed for diagnosis melena melena The patient is advised follow-up with Urology 2 weeks post discharge for diagnosis microscopic hematuria Discharge Medications: Synthroid 75 mg p.o. daily Linzess 145 mg p.o. Q Wednesday, Wednesday, Wednesday Lisinopril 10 mg p.o. daily Ozempic 0.5 mg subcutaneously weekly Zocor 20 mg p.o. daily VESIcare 10 mg p.o. daily END OF DOCTOR LAZARUS?S DISCHARGE SUMMARY DS: Data Data Completed and Pending Pending studies at discharge: Pending at discharge 07/09/21 15:05 Cytology [PTH] Routine 07/09/21 16:02 Cytology [PTH] Routine 07/11/21 12:38 Cytology [PTH] Routine Labs on day of discharge: Labs from last 24 hours 07/12/21 07/12/21 07/12/21 11:54 07:58 04:44 WBC RBC Hgb Hct MCV MCH MCHC RDW Plt Count MPV Sodium 134 L Potassium 4.8 Chloride 99 Carbon Dioxide 35 H Anion Gap 0 L BUN 28 H Creatinine 1.00 Estim Creat Clear Calc 35 Estimated GFR 53 L Glucose 129 H POC Capillary Glucose 143 H 108 H Calcium 9.0 07/12/21 07/11/21 07/11/21 04:44 19:45 16:31 WBC 14.6 H RBC 5.22 Hgb 14.0 Hct 44.2 MCV 84.7 MCH 26.8 D MCHC 31.7 L RDW 17.3 H Plt Count 170 MPV 9.1 Sodium Potassium Chloride Carbon Dioxide Anion Gap BUN Creatinine Estim Creat Clear Calc Estimated GFR Glucose POC Capillary Glucose 158 H 153 H Calcium Preliminary micro results at discharge 07/09/21 12:09 Anaerobic Culture - Preliminary Pleural Fluid Aerobic Culture - Preliminary 07/08/21 17:49 Blood Culture - Preliminary Blood 07/08/21 17:49 Blood Culture - Preliminary Blood Discharge Plan Discharge Consulting providers: Darrel Santiago Discharging Clinician: Dr. Lang Patient Disposition: Home Health Service Activity: as tolerated Diet: diabetic and low sodium Discharge Instructions: Per Care Coordination. Patient to have [facility] for RN/PT/OT eval and treat. P: [phone] RN please fax discharge instructions to: [phone]. The patient is advised follow-up with Hematology/Oncology 2 weeks post discharge or as directed for follow-up of cytology and biopsy The patient is advised follow-up with Gastroenterology as directed for her diagnosis melena The patient is advised follow-up with Urology 2 weeks post discharge for diagnosis microscopic hematuria Patient Instructions: Antibiotic Form, How to Stop Smoking (DC) Stand Alone Forms: General Discharge Info
[2021-07-13 14:14] LABS: Amylase, Pleural Fluid 10 U/L
[2021-07-15 14:10] LABS: Albumin Pleural Fluid 1.2 g/dL
[2021-07-15 16:30] LABS: Glucose Pleural Fluid 95 mg/dL; LDH Pleural Fluid 234 U/L; Total Protein Pleural Fluid <3.0 g/dL
== END 2021-07-12 14:23 | disposition home health service (06) | DRG 167 ==
LOC: ANHED 16:19 → ANHIMU 07-09 00:14 → ANH2MED 07-11 14:29 → ANHIMU 07-14 13:28
PROVIDERS: Internal Medicine; Physician Assistant; Admitting Provider Internal Medicine; Emergency Provider Emergency Medicine; PCP Physician Assistant; Visit Provider Internal Medicine
DX: C34.90 Malignant neoplasm of unspecified part of unspecified bronchus or lung (principal); J91.0 Malignant pleural effusion; E87.1 Hypo-osmolality and hyponatremia; M48.8X4 Other specified spondylopathies, thoracic region; J44.9 Chronic obstructive pulmonary disease, unspecified; E11.9 Type 2 diabetes mellitus without complications; F17.210 Nicotine dependence, cigarettes, uncomplicated; E03.9 Hypothyroidism, unspecified; E78.5 Hyperlipidemia, unspecified; I10 Essential (primary) hypertension; N32.81 Overactive bladder; K58.9 Irritable bowel syndrome, unspecified; R31.29 Other microscopic hematuria; Z85.528 Personal history of other malignant neoplasm of kidney
CPT/HCPCS: 20206; 32555; 36415; 51701; 70553; 71046; 71275; 74177; 76942; 80048; 80053; 81001; 82042; 82150; 82945; 82948; 83615; 83690; 83735; 83880; 83986; 84145; 84157; 84311; 84439; 84443; 84478; 84480; 84484; 85025; 85027; 85610; 85730; 87040; 87070; 87075; 87086; 87088; 87106; 87205; 88104; 88108; 88184; 88305; 88313; 88342; 93005; 93306; 96365; 96367; 97161; 97165; 99285; A9270; A9577; C8929; J0456; J0696; J1644; J2405; J7030; Q9957; Q9967